=== PATIENT | female | born 1930 | race Caucasian/White ===

== ENCOUNTER 2017-01-14 13:01 | Day surgery (SDC) | payer MEDICARE ==
--- NOTE | ~2017-01-14 | EGD ---
EGD REPORT [facility] [address] [id number] NAME: YUNIEL TURK : [birth year] STATUS : REG [facility] PAT#: [id number] AGE: 86 ADM/REG DATE : 01/14/17 MR#: [id number] REPORT SERV DATE: 01/14/17 DICTATED BY: ORQUIDEA RAYO DATE: 01/14/17 REPORT STATUS : Draft [facility]: [facility] DATE: 01/14/17 Endoscopy Center Patient Name: Yuniel Turk Date of : 1930 Attending MD: DANIELA RAYO MD Procedure Date No Time: 01/14/2017 Procedure: Upper GI endoscopy Indications: Anemia, Hematochezia Referring MD: JOSE MENJIVAR Medicines: See the Anesthesia note for documentation of the administered medications Complications: No immediate complications. Estimated blood loss: None. Procedure: Pre-Anesthesia Assessment: - ASA Grade Assessment: III - A patient with severe systemic disease. - Prior to the procedure, a History and Physical was performed, and patient medications and allergies were reviewed. The patient's tolerance of previous anesthesia was also reviewed. The risks and benefits of the procedure and the sedation options and risks were discussed with the patient. All questions were answered, and informed consent was obtained. Prior Anticoagulants: The patient has taken anticoagulant medication, last dose was 2 days prior to procedure. After reviewing the risks and benefits, the patient was deemed in satisfactory condition to undergo the procedure. After obtaining informed consent, the endoscope was passed under direct vision. Throughout the procedure, the patient's blood pressure, pulse, and oxygen saturations were monitored continuously. The GIF H190 [id number] was introduced through the mouth, and advanced to the second part of duodenum. The upper GI endoscopy was accomplished without difficulty. The patient tolerated the procedure well. Findings: The examined duodenum was normal. Diffuse mild inflammation characterized by erythema was found in the gastric antrum. A 3 cm hiatus hernia was present. A non-obstructing Schatzki ring (acquired) was found at the gastroesophageal junction. No other significant abnormalities were identified in a careful examination of the esophagus. EGD REPORT [address] [address] NAME: YUNIEL TURK : [birth year] STATUS : REG [facility]#: [id number] AGE: 86 ADM/REG DATE : 01/14/17 MR#: [id number] REPORT SERV DATE: 01/14/17 DICTATED BY: ORQUIDEA RAYO DATE: 01/14/17 REPORT STATUS : Draft TRANSCRIBED BY: [employer] DATE: 01/14/17 Impression: - Normal examined duodenum. - Gastritis. - Hiatus hernia. - Non-obstructing Schatzki ring. Recommendation: - Patient has a contact number available for emergencies. The signs and symptoms of potential delayed complications were discussed with the patient. Return to normal activities tomorrow. Written discharge instructions were provided to the patient. - Regular diet. - Discharge patient to home. - Continue present medications. Procedure Code(s): --- Professional --- 45211, Esophagogastroduodenoscopy, flexible, transoral; diagnostic, including collection of specimen(s) by brushing or washing, when performed (separate procedure) Diagnosis Code(s): --- Professional --- K29.70, Gastritis, unspecified, without bleeding K44.9, Diaphragmatic hernia without obstruction or gangrene K22.2, Esophageal obstruction D64.9, Anemia, unspecified K92.1, Melena CPT copyright 2013 [employer]. All rights reserved. The codes documented in this report are preliminary and upon flatwork folder review may be revised to meet current compliance requirements. DANIELA RAYO MD 01/14/2017 3:11 PM This report has been signed electronically. Number of Addenda: 0 Note Initiated On: 01/14/2017 3:01 PM Scope Withdrawal Time 0 hours 0 minutes 0 seconds [id number] [id number]
--- NOTE | ~2017-01-14 | EGD ---
EGD REPORT [facility] [address] [id number] NAME: YUNIEL TURK : [birth year] STATUS : REG [facility] PAT#: [id number] AGE: 86 ADM/REG DATE : 01/14/17 MR#: [id number] REPORT SERV DATE: 01/14/17 DICTATED BY: ORQUIDEA RAYO DATE: 01/14/17 REPORT STATUS : Draft [facility]ANSCRIBED BY: [facility] DATE: 01/14/17 Endoscopy Center Patient Name: Yuniel Turk Date of : 1930 Attending MD: DANIELA RAYO MD Procedure Date No Time: 01/14/2017 Procedure: Colonoscopy Indications: Hematochezia Referring MD: JOSE MENJIVAR Medicines: See the Anesthesia note for documentation of the administered medications Complications: No immediate complications. Estimated blood loss: None. Procedure: Pre-Anesthesia Assessment: - ASA Grade Assessment: III - A patient with severe systemic disease. - Prior to the procedure, a History and Physical was performed, and patient medications and allergies were reviewed. The patient's tolerance of previous anesthesia was also reviewed. The risks and benefits of the procedure and the sedation options and risks were discussed with the patient. All questions were answered, and informed consent was obtained. Prior Anticoagulants: The patient has taken anticoagulant medication, last dose was 2 days prior to procedure. After reviewing the risks and benefits, the patient was deemed in satisfactory condition to undergo the procedure. After I obtained informed consent, the scope was passed under direct vision. Throughout the procedure, the patient's blood pressure, pulse, and oxygen saturations were monitored continuously. The PCF [id number] was introduced through the anus and advanced to the terminal ileum. The ileocecal valve, appendiceal orifice, terminal ileum and rectum were photographed. The entire colon was examined. The colonoscopy was performed without difficulty. The patient tolerated the procedure well. The quality of the bowel preparation was adequate. Findings: The terminal ileum appeared normal. A sessile polyp was found in the distal descending colon. The polyp was 5 mm in size. The polyp was removed with a cold snare. Resection and retrieval were complete. Non-bleeding internal hemorrhoids were found during retroflexion and were Grade I (internal hemorrhoids that do not prolapse). No other significant abnormalities were identified in a careful EGD REPORT [address] [address] NAME: YUNIEL TURK : [birth year] STATUS : [facility]#: [id number] AGE: 86 ADM/REG DATE : 01/14/17 MR#: [id number] REPORT SERV DATE: 01/14/17 DICTATED BY: ORQUIDEA RAYO DATE: 01/14/17 REPORT STATUS : Draft TRANSCRIBED BY: [facility] DATE: 01/14/17 examination of the remainder of the colon. Impression: - The examined portion of the ileum was normal. - One 5 mm polyp in the distal descending colon. Resected and retrieved. - Non-bleeding internal hemorrhoids. Recommendation: - Patient has a contact number available for emergencies. The signs and symptoms of potential delayed complications were discussed with the patient. Return to normal activities tomorrow. Written discharge instructions were provided to the patient. - Regular diet. - Discharge patient to home. - Continue present medications. - Await pathology results. - Repeat colonoscopy is not recommended for surveillance. - Make sure you restart Eliquis today Procedure Code(s): --- Professional --- 10712, Colonoscopy, flexible, proximal to splenic flexure; with removal of tumor(s), polyp(s), or other lesion(s) by snare technique Diagnosis Code(s): --- Professional --- K64.0, First degree hemorrhoids D12.4, Benign neoplasm of descending colon K92.1, Melena CPT copyright 2013 [employer] [place] [employer]. All rights reserved. The codes documented in this report are preliminary and upon manager industrial review may be revised to meet current compliance requirements. DANIELA RAYO MD 01/14/2017 3:28 PM This report has been signed electronically. Number of Addenda: 0 Note Initiated On: 01/14/2017 3:00 PM Scope Withdrawal Time 0 hours 5 minutes 57 seconds [id number] [id number]
[~2017-01-14 13:01] MED LIST: ASA5GR PO; ASAB PO; ATACAND32 MG PO; ELIQUIS 2.5 MG2.5 MG PO; EZFE 200200 MG PO; LIPITOR20 PO; LOP25 PO; METPAKSF PO; NORV10 PO; PLAVIX PO; X25 PO; ZANTAC 75 PO
== END 2017-01-14 23:59 | disposition home or self-care (01) ==
LOC: DMU 13:01
PROVIDERS: Internal Medicine Gastroenterology
PROC: 0DBM8ZZ Excision of Descending Colon, Via Natural or Artificial Opening Endoscopic (ICD-10-PCS; principal; 2017-01-14 15:00)
PROC: 0DJ08ZZ Inspection of Upper Intestinal Tract, Via Natural or Artificial Opening Endoscopic (ICD-10-PCS; 2017-01-14 15:00)
DX: D12.4 Benign neoplasm of descending colon (principal); K64.0 First degree hemorrhoids; K92.1 Melena; K29.70 Gastritis, unspecified, without bleeding; K44.9 Diaphragmatic hernia without obstruction or gangrene; K21.9 Gastro-esophageal reflux disease without esophagitis; K22.2 Esophageal obstruction; D64.9 Anemia, unspecified; I10 Essential (primary) hypertension; Z95.5 Presence of coronary angioplasty implant and graft; I48.91 Unspecified atrial fibrillation; Z79.01 Long term (current) use of anticoagulants; Z88.5 Allergy status to narcotic agent; Z98.890 Other specified postprocedural states; Z98.891 History of uterine scar from previous surgery; Z90.710 Acquired absence of both cervix and uterus; Z98.42 Cataract extraction status, left eye; Z96.1 Presence of intraocular lens; H54.41 Blindness, right eye, normal vision left eye; I25.10 Atherosclerotic heart disease of native coronary artery without angina pectoris; I25.2 Old myocardial infarction; Z79.899 Other long term (current) drug therapy
CPT/HCPCS: 88305